=== PATIENT | male | born 1955 | race African-American/Black ===

== ENCOUNTER 2017-05-22 16:44 | Observation (INO) ==
[2017-05-22] MEDS ORDERED: ASPIRIN CHEW 81 MG TABLET PO STA (17:49)
[2017-05-22] MEDS ORDERED: MORPHINE 2 MG/1 ML SYRINGE IV STA (17:51)
[2017-05-22] MEDS ORDERED: MORPHINE 2 MG/1 ML SYRINGE ONE (18:04)
[2017-05-22] MEDS ORDERED: ASPIRIN 325 MG TABLET ONE (18:05)
[2017-05-22 18:11] LABS: Basophils # 0.1 10*3/uL (0.0-0.2); Basophils % 0.6 % (0.0-0.8); Eosinophils # 0.3 10*3/uL (0.0-0.87); Eosinophils % 3.3 % (0.00-10.9); Hemoglobin 13.4 GM/DL (14.0-18.0); Immature Granulocytes % 0.2 %; Immature Granulocytes Absolute 0.02 #; Lymphocytes # 3.2 10*3/uL (1.4-4.0); Lymphocytes % 38.5 % (21.2-54.2); Mean Corpuscular HGB Conc 34.4 GM/DL (32-36); Mean Corpuscular Hemoglobin 32 PG (27-34); Mean Corpuscular Volume 92.9 FL (87-102); Mean Platelet Volume 9.3 FL (9.6-12.0); Monocytes # 0.7 10*3/uL (0.11-0.8); Monocytes % 8.6 % (1.7-12.7); Neutrophils # 4.1 10*3/uL (1.4-7.4); Neutrophils % 48.8 % (38.7-73.9); Platelet Count 279 T/CUMM (130-400); Red Cell Distribution Width 13.4 % (9.3-17.3); White Blood Count 8.4 T/CUMM (4-12)
[2017-05-22 18:26] LABS: Blood Urea Nitrogen 9 MG/DL (7-18); Glucose 109 MG/DL (74-106); Magnesium 1.8 MG/DL (1.8-2.4); Potassium 2.8 MMOL/L (3.5-5.1); Sodium 143 MMOL/L (136-145); Troponin I Only < 0.015 NG/ML (0.00-0.045)
[2017-05-22] MEDS ORDERED: amLODIPine 5 MG TABLET PO STA (19:29)
[2017-05-22] MEDS ORDERED: LORazepam 0.5 MG TABLET PO PRN (19:36)
[2017-05-22] MEDS ORDERED: MAGNESIUM SULF RIDER 2 GM in PREMIX 1 EACH IV STA (19:38)
[2017-05-22] MEDS ORDERED: amLODIPine 5 MG TABLET ONE (19:42)
[2017-05-22] MEDS ORDERED: MAGNESIUM SULF RIDER 50 ML IV ONE (19:57)
[2017-05-22] MEDS ORDERED: MAGNESIUM SULF RIDER 2 GM in PREMIX 1 EACH IV PRN (20:49)
[2017-05-22] MEDS ORDERED: POTASSIUM CHLORIDE 20 MEQ TABLET PO PRN (20:49)
[2017-05-22] MEDS: hydrALAZINE 10 MG TABLET PO SCH (22:02)
[2017-05-22] MEDS: POTASSIUM CHLORIDE 20 MEQ TABLET PO SCH (22:02)
[2017-05-22] MEDS: ATORVASTATIN 20 MG TABLET PO SCH (22:02)
[2017-05-22] MEDS: ENOXAPARIN 60 MG/0.6 ML SYRINGE SUBCUT SCH (22:47)
[2017-05-22] MEDS: NICOTINE 21 MG/24 HR PATCH TRANSDERM SCH (22:47)
[2017-05-23] MEDS: POTASSIUM CHLORIDE 20 MEQ TABLET PO SCH ×2 (00:37→04:20)
[2017-05-23] MEDS: NITROGLYCERIN 2% OINT 1 INCH/GM PACK TOP SCH ×4 (01:09→18:39)
[2017-05-23 04:59] LABS: Calcium 8.6 MG/DL (8.5-10.1); Osmolality,Calculated 282.8 MOS/KG (273-304); Potassium 4.1 MMOL/L (3.5-5.1); Risk Ratio 3.22; VLDL CHOLESTEROL 16.6 MG/DL
[2017-05-23] MEDS: NICOTINE 21 MG/24 HR PATCH TRANSDERM SCH (10:47)
[2017-05-23] MEDS: ENOXAPARIN 60 MG/0.6 ML SYRINGE SUBCUT SCH ×2 (10:47→21:20)
[2017-05-23] MEDS: ASPIRIN EC 325 MG TABLET PO SCH (10:48)
[2017-05-23] MEDS: hydrALAZINE 10 MG TABLET PO SCH ×3 (10:48→21:19)
[2017-05-23] MEDS ORDERED: diphenhydrAMINE CAP 25 MG CAPSULE PO ONE (11:20)
[2017-05-23] MEDS: SODIUM CHLORIDE 0.45% 1,000 ML IV SCH ×2 (11:44→21:20)
[2017-05-23] MEDS ORDERED: VERAPAMIL 5 MG/2 ML VIAL ONE (11:49)
[2017-05-23] MEDS ORDERED: NITROGLYCERIN DRIP 50 MG/250 ML BOTTLE IV ONE (11:49)
[2017-05-23] MEDS ORDERED: LIDOCAINE 1% 20 ML VIAL ONE (11:49)
[2017-05-23] MEDS ORDERED: HEPARIN/NACL 0.9% 2 UNITS/ML 1,000 ML IV ONE (11:49)
[2017-05-23] MEDS ORDERED: DIAZEPAM 5 MG TABLET PO ONE (12:00)
[2017-05-23] MEDS ORDERED: HYDROmorphone 2 MG/1 ML VIAL ONE (12:07)
[2017-05-23] MEDS ORDERED: MIDAZOLAM 2 MG/2 ML VIAL ONE (12:09)
[2017-05-23] MEDS: ATORVASTATIN 20 MG TABLET PO SCH (21:19)
[2017-05-23] MEDS: CARVEDILOL 3.125 MG TABLET PO SCH (21:20)
[2017-05-24] MEDS: NITROGLYCERIN 2% OINT 1 INCH/GM PACK TOP SCH ×3 (01:02→12:10)
[2017-05-24] MEDS: SODIUM CHLORIDE 0.45% 1,000 ML IV SCH (07:24)
[2017-05-24 08:44] LABS: Basophils % 0.6 % (0.0-0.8); Eosinophils # 0.2 10*3/uL (0.0-0.87); Eosinophils % 2.5 % (0.00-10.9); Hematocrit 40.9 VOL% (42.0-52.0); Hemoglobin 14.1 GM/DL (14.0-18.0); Immature Granulocytes % 0.3 %; Immature Granulocytes Absolute 0.02 #; Lymphocytes # 2.9 10*3/uL (1.4-4.0); Lymphocytes % 42.8 % (21.2-54.2); Mean Corpuscular HGB Conc 34.5 GM/DL (32-36); Mean Corpuscular Hemoglobin 32 PG (27-34); Mean Platelet Volume 9.4 FL (9.6-12.0); Monocytes # 0.6 10*3/uL (0.11-0.8); Monocytes % 8.7 % (1.7-12.7); Neutrophils # 3.1 10*3/uL (1.4-7.4); Neutrophils % 45.1 % (38.7-73.9); Platelet Count 289 T/CUMM (130-400); Red Cell Distribution Width 13.5 % (9.3-17.3); White Blood Count 6.8 T/CUMM (4-12)
[2017-05-24 09:01] LABS: Magnesium 1.8 MG/DL (1.8-2.4); Osmolality,Calculated 281.1 MOS/KG (273-304)
[2017-05-24] MEDS: CARVEDILOL 3.125 MG TABLET PO SCH (09:34)
[2017-05-24] MEDS: ASPIRIN EC 325 MG TABLET PO SCH (09:34)
[2017-05-24] MEDS: hydrALAZINE 10 MG TABLET PO SCH ×2 (09:34→14:20)
[2017-05-24] MEDS: NICOTINE 21 MG/24 HR PATCH TRANSDERM SCH (09:36)
[2017-05-24] MEDS: ENOXAPARIN 60 MG/0.6 ML SYRINGE SUBCUT SCH (09:38)
[2017-05-24 15:00] VITALS: BP 144/98
== END 2017-05-24 14:25 | disposition home or self-care (01) ==
LOC: N.ED 16:44 → N.EDINP 16:44 → SUATTDRO 19:30 → N.2E 19:56
PROVIDERS: ADMIT Internal Medicine; ATTEND Internal Medicine
PROC: CLCCHCL (ICD-10-PCS; 2017-05-23 12:15)